=== PATIENT | male | born 1990 | race African-American/Black ===

== ENCOUNTER 2019-03-20 11:51 | Emergency (ER) | payer SELFPAY ==
[~2019-03-20] VITALS: Ht 182.9 cm; Wt 83.9 kg
[2019-03-20 13:10] VITALS: BP 133/89
== END 2019-03-20 13:54 | disposition home or self-care (01) ==
LOC: ER 11:51
DX: R51 Headache (principal); K08.89 Other specified disorders of teeth and supporting structures
CPT/HCPCS: 70450